=== PATIENT | female | born 2000 | race Two or more races ===

== ENCOUNTER → 2024-12-17 | Outpatient (CLI) | payer MEDICAID, SELFPAY ==
--- NOTE | 2024-12-17 16:16 | XR_ITS ---
Examination: Hand, right 3 views Technique: Hand AP, oblique, lateral 3 views Date and time of exam: December 17, 2024, 1633 hours INDICATIONS: Right hand pain beginning 1 week ago. FINDINGS: No fracture or dislocation. No erosive or other significant arthritic change IMPRESSION: No erosive or other significant arthritic change
--- NOTE | 2024-12-17 16:16 | XR_ITS ---
Examination: Wrist, right 3 views Technique: Wrist AP, oblique, lateral 3 views Date and time of exam: December 17, 2024, 1633 hours,. INDICATIONS: Right wrist pain 1 week FINDINGS: Adequate bone density. No fracture or dislocation. Mild narrowing radiocarpal joint IMPRESSION: No erosive or other significant arthritic change
== END | disposition home or self-care (01) ==
LOC: CDIM 16:13
PROVIDERS: PCP Nurse Practitioner Family; Referring Provider Nurse Practitioner Gerontology; Visit Provider Nurse Practitioner Gerontology
DX: M79.641 Pain in right hand (principal); M25.531 Pain in right wrist
CPT/HCPCS: 73110; 73130